=== PATIENT | female | born 1940 | race Caucasian/White ===

== ENCOUNTER 2017-10-08 17:25 | Emergency (ER) | payer MEDICARE, OTHER ==
[~2017-10-08] VITALS: Ht 157.5 cm; Wt 81.9 kg
[~2017-10-08 17:25] MED LIST: CIPR500T86 PO; TRAM50TA PO
--- NOTE | 2017-10-08 17:25 | NUR ---
ARRIVAL PT ARRIVED VIA STRETCHER BY [facility] C/O INTERMITTENT DIZZINESS TODAY. [facility] STATES WERE CALLED BY PT HOME [facility] FOR DIZZINESS AND CONFUSION AND THAT PT HAD A FALL 3 WEEKS AGO AND DID NOT RECEIVE MEDICAL TREATMENT. PT HAS DEMENTIA. NO ACUTE DISTRESS NOTED. EDP NOTIFIED OF PT ARRIVAL.
--- NOTE | 2017-10-08 17:32 | ER.PDOC ---
General Chief Complaint: Requesting Medical Care Stated Complaint: FALL Time seen by MD: 17:31 Source: patient Exam Limitations: no limitations History of Present Illness Initial Comments Pt w pmhx early dementia, sinus issues, asthma, no surgeries pw dizziness earlier today and shakiness/forgetfulness. Pt fell 2-3 wks ago and refused to be taken to MD. She has been dizzy and having headaches since. Pt confirmed that she hit her head at that time. Occurred: just prior to arrival, other Where: home Severity: mild Injuries/Pain Location: no injury Context: Unknown Loss of Consciousness: No Loss of Consciousness Modifying Factors: worse with cold therapy, worse with immobilization, worse with jarring, worse with movement, worse with pain medication, worse with rest, worse with other Associated Symptoms: denies symptoms Allergies: Coded Allergies: Penicillins (Unverified Allergy, Unknown, 10/06/14) Sulfa (Sulfonamide Antibiotics) (Unverified Allergy, Unknown, 10/06/14) cefdinir (Unverified Allergy, Unknown, 10/06/14) levofloxacin (Unverified Allergy, Unknown, 10/06/14) moxifloxacin (Unverified Allergy, Unknown, 10/06/14) nitrofurantoin (Unverified Allergy, Unknown, 10/06/14) MEDS Active Scripts Ciprofloxacin Hcl (CIPRO) 500 Mg Tablet, 500 MG PO BID, #14 Prov:NATHAN CORDOBA MD 10/17/14 Reported Medications Tramadol Hcl (TRAMADOL HCL) 50 Mg Tablet, 1 TAB PO Q6HR Y for PAIN, #90 TAB 10/14/14 Past Medical History Medical History: other (see hpi) Surgical History: tonsillectomy Family History Significant Family History: no pertinent family hx Social History Smoking: non-smoker Alcohol Use: none Drug Use: none Review of Systems Constitutional: denies no symptoms reported, denies see HPI, denies chills, denies diaphoresis, denies fever, denies malaise, denies weakness, denies other Eyes: denies no symptoms reported, denies see HPI, denies blindness, denies blurred vision, denies drainage, denies decreased acuity, denies foreign body sensation, denies inflammation, denies pain, denies photophobia, denies previous injury, denies shadows, denies tunnel vision, denies vision change, denies contact lenses, denies glasses, denies other Ears, Nose, Mouth, Throat: denies no symptoms reported, denies see HPI, denies ear pain, denies ear discharge, denies nose pain, denies nose discharge, denies epistaxis, denies mouth pain, denies mouth swelling, denies loose teeth, denies throat pain, denies throat swelling Respiratory: denies no symptoms reported, denies see HPI, denies cough, denies orthopnea, denies shortness of breath, denies stridor, denies wheezing, denies other Cardiovascular: denies no symptoms reported, denies see HPI, denies chest pain , denies edema, denies palpitations, denies syncope, denies other Gastrointestinal: denies no symptoms reported, denies see HPI, denies abdominal pain, denies constipation, denies diarrhea, denies nausea, denies vomiting, denies other Genitourinary: denies no symptoms reported, denies see HPI, denies discharge, denies dysuria, denies frequency, denies hematuria, denies pain, denies other Musculoskeletal: denies no symptoms reported, denies see HPI, denies back pain , denies gout, denies joint pain, denies joint swelling, denies muscle pain, denies muscle stiffness, denies neck pain, denies other Skin: denies no symptoms reported, denies see HPI, denies change in color, denies change in hair/nails, denies dryness, denies lesions, denies lumps, denies rash, denies other Psychiatric/Neurological: denies no symptoms reported, denies see HPI, denies anxiety, denies depressed, emotional problems (insecurity about memory, overcompensates w sarcasm and answering around questions ), headache, denies numbness, denies paresthesia, denies pre-existing deficit, denies seizure, denies tingling, denies tremors, denies weakness, other (dizziness, shakiness) Physical Exam General Appearance: No Apparent Distress, WD/WN Head: No Evidence of Injury, Other (no evidence of head injury) Eyes: bilateral eye normal inspection, bilateral eye PERRL, bilateral eye EOMI Ears, Nose, Mouth, Throat: Hearing Grossly Normal, No Evidence of ENT Injury, No Dental Injury Neck: Non-Tender, Normal Alignment Cardiovascular/Respiratory: Regular Rate, Rhythm, No M/R/G, Normal Peripheral Pulses, No JVD, Normal Breath Sounds, No Respiratory Distress Gastrointestinal: No Organomegaly, No Pulsatile Mass, Non Tender Extremities: No Evidence of Injury, Normal Range of Motion, Non-Tender, No Pedal Edema Neurologic/Psychiatric: film cutter II-XII NML as Tested, No Motor/Sensory Deficits, Alert, Normal Mood/Affect, Other (A O x 2) Skin: Normal Color, Warm/Dry [place] Coma Score Best Eye Response: (4) Open Spontaneously Best Verbal Response: (5) Oriented Best Motor Response: (6) Obeys Commands Results/Orders Results/Orders Laboratory Tests Test 10/08/17 18:21 10/08/17 18:46 White Blood Count 10.4 10^3/uL (4.5-11.0) Red Blood Count 4.02 10^6/uL (4.00-5.20) Hemoglobin 7.2 g/dL (12.0-15.0) Hematocrit 26.3 % (36.0-46.0) Mean Corpuscular Volume 65.4 fL (78-100) Mean Corpuscular Hemoglobin 17.9 pg (26-34) Mean Corpuscular Hemoglobin Concent 27.4 g/dL (33-37) Red Cell Distribution Width 18.2 % (11.5-14.5) Platelet Count 363 10^3/uL (150-400) Mean Platelet Volume 9.9 fL (7.8-11.0) Neutrophils (%) (Auto) 68.7 % (41.0-85.0) Lymphocytes (%) (Auto) 22.4 % (24.0-44.0) Monocytes (%) (Auto) 6.4 % (5.0-12.0) Neutrophils # (Auto) 7.1 10^3/uL (1.8-7.7) Lymphocytes # (Auto) 2.3 10^3/uL (1.0-4.8) Monocytes # (Auto) 0.7 10^3/uL (0.3-0.8) Absolute Immature Granulocyte (auto 0.02 10^3 u/L (0-2) Eosinophils % 2.0 % (0.0-5.0) Basophils % 0.3 % (0.0-0.2) Basophils # 0.0 10^3/uL (0.0-0.1) Eosinophil Count 0.2 10^3/uL (0.0-0.2) Sodium Level 142 mmol/L (132-145) Potassium Level 3.7 mmol/L (3.6-5.2) Chloride Level 107.0 mmol/L (96-109) Carbon Dioxide Level 23.3 mmol/L (20.0-32) Anion Gap 15.4 Blood Urea Nitrogen 14 mg/dL (7-18) Creatinine 0.98 mg/dL (0.59-1.40) Estimated GFR () 66.4 (>/=60) BUN/Creatinine Ratio 14.0 Glucose Level 149 mg/dL (70-110) Calcium Level 8.7 mg/dL (8.4-10.5) Total Bilirubin 0.8 mg/dL (0.2-1.0) Aspartate Amino Transf (AST/SGOT) 22 U/L (0-35) Alanine Aminotransferase (ALT/SGPT) 20 U/L (12-78) Alkaline Phosphatase 82 U/L (50-136) Total Creatine Kinase 36 U/L (26-192) Total Protein 6.8 g/dL (6.4-8.2) Albumin 3.3 g/dL (3.4-5.0) Globulin 3.5 Percent Immature Gran (Cell Imm) 0.20 % (0.00-0.50) Urine Collection Type VOID Urine Color YELLOW (YELLOW) Urine Appearance CLOUDY (CLEAR) Urine Bilirubin NEGATIVE MG/DL (NEGATIVE) Urine Ketones NEGATIVE (NEGATIVE) Urine Specific [place] 1.020 (1.005-1.035) Urine pH 5 (5.0-6.0) Urine Protein 15 mg/dL (NEGATIVE) Urine Urobilinogen NORMAL (NEGATIVE) Urine Nitrate POSITIVE (NEGATIVE) Urine Leukocyte Esterase 100/ul 1+ (NEGATIVE) Urine Blood 10 TR (NEGATIVE) Urine RBC 0-2 RBC/HPF (NONE SEEN) Urine WBC 5-10 WBC/HPF (0-2) Urine Squamous Epithelial Cells MANY #/HPF (FEW) Urine Bacteria MANY (NONE SEEN) Urine Glucose NORMAL (NEGATIVE) anemia new Progress Progress pt found to have anemia (no prior labs here) and hyperglycemia and uti wbc on ua. cx sent. I asked Alejo DON to ask spouse if pt has had anemia? any transfusions? and to tell them that she must have the CT....when spouse asked a ? and she was headed to answer his question. I returned after seeing a pt and learned that pt refused CT again after I reordered it and had a talk with her that we needed the studies back before we could let them go home. He understood. Family said to Lynnettei that they did not wish to fight with patient and they wanted to leave against medical advice. I was not told of this or I would have gone to family and explained that bleed can be missed, that pt may need transfusion, and that she has a UTI. I will attempt calling the family tonight. EKG/XRAY/CT/US EKG: NSR (85), rhythm (wnl inter wnl ), no ST T wave changes Departure Time of Disposition: 19:35 Disposition: 07 AGAINST MEDICAL ADVICE Impression: Primary Impression: Dizziness Additional Impressions: UTI (urinary tract infection) Qualified Codes: N39.0 - Urinary tract infection, site not specified Anemia Qualified Codes: D64.9 - Anemia, unspecified Hyperglycemia Condition: Stable Referrals: PIPPA ROSS MD (PCP) PRIMARY CARE PROVIDER Comments I had extensive talk w about staying until all tests were done. Despite this, family decided that they were ok w pt refusing CT and allowed her to go home despite that DON told them she was anemic. I attempted to call twice but no one answered. Duration or Time Spent with Pa: 15 PETE HOLDEN MD Oct 08, 2017 17:31
[2017-10-08 17:37] VITALS: BP 136/78
--- NOTE | 2017-10-08 17:56 | PCM.EKG ---
[facility] Test Date: 2017-10-08 Test Time: 17:58:09 Pat Name: NILESH APARICIO Department: Room: Gender: F Tool Keeper: SOFIA : 1940 Requested By: PETE HOLDEN Order Number: [id number] Reading MD: Measurements Intervals [place] Rate: 85 P: 66 IA: 138 QRS: 43 QRSD: 74 T: 52 QT: 358 QTc: 426 Interpretive Statements Normal sinus rhythm Normal ECG No previous ECG available for comparison Please click the below link to view image of tracing.
--- NOTE | 2017-10-08 18:06 | NUR ---
CT REFUSED WATERPROOF COATING MACHINE TENDER TO NURSES STATION STATING THAT PT HAS REFUSED CT AT THIS TIME.
[2017-10-08 18:29] LABS: BASOPHIL % 0.3 % (0.0-0.2); EOSINOPHIL # 0.2 10^3/uL (0.0-0.2); HEMOGLOBIN 7.2 g/dL (12.0-15.0); LYMPHOCYTES # 2.3 10^3/uL (1.0-4.8); LYMPHOCYTES % 22.4 % (24.0-44.0); MEAN CELL HGB 17.9 pg (26-34); MEAN CELL HGB CONCENTRATION 27.4 g/dL (33-37); MEAN CORP VOLUME 65.4 fL (78-100); MEAN PLATELET VOLUME 9.9 fL (7.8-11.0); MONOCYTES # 0.7 10^3/uL (0.3-0.8); MONOCYTES % 6.4 % (5.0-12.0); NEUTROPHIL # 7.1 10^3/uL (1.8-7.7); NEUTROPHILS % 68.7 % (41.0-85.0); PLATELET COUNT 363 10^3/uL (150-400); RED CELL DISTRIBUTION WIDTH 18.2 % (11.5-14.5); WHITE BLOOD CELL 10.4 10^3/uL (4.5-11.0)
[2017-10-08 18:45] LABS: CALCIUM 8.7 mg/dL (8.4-10.5); CARBON DIOXIDE 23.3 mmol/L (20.0-32)
[2017-10-08 18:52] LABS: BILIRUBIN,URINE NEGATIVE (NEGATIVE); UA COLOR YELLOW (YELLOW); UROBILINOGEN,URINE NORMAL (NEGATIVE)
[2017-10-08 18:53] LABS: APPEARANCE,URINE CLOUDY (CLEAR)
--- NOTE | 2017-10-08 19:10 | NUR ---
DISCHARGE PATIENT LEFT AMA, CAOX4, AMBULATED WITH FAMILY OUT OF ER
--- NOTE | 2017-10-08 19:10 | NUR ---
AMA PATIENT LEFT AMA, REFUSED TO HAVE CT HEAD, FAMILY TRIED TO GET PATIENT TO STAY, FAMILY REFUSED. RISKS AND CONSEQUENCES EXPLAINED TO PATIENT IF PATIENT LEFT WITHOUT FURTHER TREATMENT. PATIENT STILL REFUSED TO STAY AND SIGNED AMA PAPER
== END 2017-10-08 19:10 | disposition left against medical advice (07) ==
LOC: EDBD 17:25 → ER 17:25
DX: R42 Dizziness and giddiness (principal); N39.0 Urinary tract infection, site not specified; D64.9 Anemia, unspecified; R73.9 Hyperglycemia, unspecified; J45.909 Unspecified asthma, uncomplicated; F03.90 Unspecified dementia, unspecified severity, without behavioral disturbance, psychotic disturbance, mood disturbance, and anxiety; Z88.0 Allergy status to penicillin; Z88.2 Allergy status to sulfonamides
CPT/HCPCS: 36415; 80053; 81000; 82550; 85025; 85660; 87077; 87086; 87186; 93005; 99285